=== PATIENT | male | born 1995 | race Caucasian/White ===

== ENCOUNTER 2018-10-26 18:11 | Emergency (ER) | payer BC ==
[~2018-10-26] VITALS: Ht 182.9 cm; Wt 104.1 kg
--- NOTE | 2018-10-26 21:07 | REPVR ---
EXAM: US Duplex Right Lower Extremity Veins, Limited EXAM DATE/TIME: 10/26/2018 8:21 PM CLINICAL HISTORY: 23 years old, male; Pain; Edema, localized; Lower extremity, right; Leg, lower; Additional info: Swelling/pain TECHNIQUE: Imaging protocol: Real-time Duplex ultrasound of the Right Lower Extremity with 2-D borrego scale, color Doppler flow and spectral waveform analysis. Limited exam was focused on the right lower extremity veins. COMPARISON: No relevant prior studies available. FINDINGS: Right deep veins: Unremarkable. The common femoral, femoral and popliteal veins are patent without thrombus. Normal Doppler waveforms. Normal compressibility and/or augmentation response. Right superficial veins: Unremarkable. Saphenofemoral junction is patent without thrombus. Soft tissues: Unremarkable. IMPRESSION: No sonographic evidence of deep vein thrombosis. Electronically signed by: Jonnathan Tamayo On 10/26/2018 21:06:46 PM
[2018-10-26 21:23] LABS: HEMATOCRIT 46.6 % (42.0-52.0); HEMOGLOBIN 15.5 g/dl (13.5-17.5); MEAN CORPUSCULAR HEMOGLOBIN 30.6 pg (27.0-33.0); MEAN CORPUSCULAR HGB CONC 33.3 g/dl (32.0-36.5); MEAN CORPUSCULAR VOLUME 91.9 fl (80.0-96.0); PLATELET COUNT, AUTOMATED 160 10^3/uL (150-450); RED BLOOD COUNT 5.07 10^6/uL (4.30-6.10); WHITE BLOOD COUNT 7.4 10^3/uL (4.0-10.0)
[2018-10-26 21:43] LABS: ERYTHROCYTE SEDIMENTATION RATE 5 mm/hr (0-15)
[2018-10-26 22:00] VITALS: BP 110/62
[2018-12-22] MEDS ORDERED: CORTISOL (11:37)
[2018-12-22] MEDS ORDERED: OMEGA PO (11:37)
[2018-12-22] MEDS ORDERED: protein powder PO (11:37)
[2018-12-22] MEDS ORDERED: [UNRECOGNIZED DRUG - CODE] PO (11:37)
[2018-12-22] MEDS ORDERED: PROBCAP17 PO (11:37)
[2018-12-22] MEDS ORDERED: GLUT1POW22 PO (11:37)
[2018-12-22] MEDS ORDERED: MAGN1CAP PO (11:37)
[2018-12-22] MEDS ORDERED: CALC500C16 PO (11:37)
[2018-12-22] MEDS ORDERED: MULTCAP PO (11:37)
[2018-12-22] MEDS ORDERED: [UNRECOGNIZED DRUG - OTHER] PO (11:37)
[2018-12-22] MEDS ORDERED: D3 U1000 PO (11:37)
[2018-12-22] MEDS ORDERED: JOINCAP2 PO (11:37)
[2018-12-22] MEDS ORDERED: PRE WORKOUT PO (11:37)
[2018-12-22] MEDS ORDERED: CARB PO (11:37)
[2018-12-22] MEDS ORDERED: XARE20TA PO (11:58)
== END 2018-10-26 23:02 | disposition home or self-care (01) ==
LOC: M ED 18:11
DX: M79.661 Pain in right lower leg (principal); M79.89 Other specified soft tissue disorders; R20.2 Paresthesia of skin

== ENCOUNTER → 2018-10-26 | Outpatient (REF) | payer BC ==
[2018-10-26 15:42] LABS: HIV 1&2 SCREEN CENTAUR NEGATIVE (NEGATIVE)
[2018-10-26 16:04] LABS: CHLAMYDIA DNA AMPLIFICATION NEGATIVE (NEGATIVE); GC DNA AMPLIFICATION NEGATIVE (NEGATIVE)
== END ==
LOC: M SFHCLERA 10:45
PROVIDERS: ATTEND Family Medicine
DX: M79.661 Pain in right lower leg (principal); Z11.3 Encounter for screening for infections with a predominantly sexual mode of transmission

== ENCOUNTER → 2018-10-26 | Outpatient (CLI) | payer BC ==
--- NOTE | 2018-10-26 11:40 | REP ---
Clinical: Pain to left first digit Technique: AP, lateral, bilateral oblique views left hand . Findings: Old healed fracture involving the head of the first metacarpal bone is appreciated and consistent with given history. Mild swelling surrounds the fourth proximal interphalangeal joint without underlying injury or arthritic changes. Remainder examination appears normal. Impression: 1. Old injury involving the head of the first metacarpal bone. 2. Mild focal swelling surrounding the fourth PIP joint. Electronically Signed by Jesus Pierce MD 10/26/2018 11:32 A
== END ==
LOC: M LRY 10:58
PROVIDERS: ATTEND Family Medicine
DX: M79.645 Pain in left finger(s) (principal)

== ENCOUNTER → 2018-11-11 | Outpatient (CLI) | payer BC ==
--- NOTE | 2018-11-11 09:01 | REP ---
RIGHT LOWER EXTREMITY DUPLEX VENOUS ULTRASOUND: HISTORY: Pain in the right calf. Negative Doppler ultrasound on October 26, 2018. Positive D-dimer. Repeat right lower extremity ultrasound rule out DVT. FINDINGS: There is occlusive intraluminal thrombus involving the tibioperoneal trunk extending distally into the peroneal and posterior tibial veins in the calf below the knee. Popliteal vein and the proximal deep venous system are anechoic and compressible. Intact color flow and Doppler interrogation is seen at and above the knee. IMPRESSION: Study is positive for occlusive deep venous thrombosis in the calf involving the right tibioperoneal trunk and proximal calf veins. There is no evidence of deep venous thrombosis at or above the knee. Electronically Signed by Matthew Rendon MD 11/11/2018 09:30 A
== END ==
LOC: M RAD 07:42
PROVIDERS: ATTEND Family Medicine
DX: I82.531 Chronic embolism and thrombosis of right popliteal vein (principal)

== ENCOUNTER → 2018-11-11 | Outpatient (REF) | payer BC ==
[2018-11-11 13:16] LABS: BASO % 0.4 % (0.0-1.0); EOS # 0.1 10^3/uL (0.0-0.50); EOS % 1.3 % (0.0-3.0); HEMATOCRIT 46.5 % (42.0-52.0); HEMOGLOBIN 15.5 g/dl (13.5-17.5); LYMPH # 1.7 10^3/uL (1.5-6.5); LYMPH % 25.3 % (24.0-44.0); MEAN CORPUSCULAR HEMOGLOBIN 29.5 pg (27.0-33.0); MEAN CORPUSCULAR HGB CONC 33.3 g/dl (32.0-36.5); MEAN CORPUSCULAR VOLUME 88.6 fl (80.0-96.0); MONO # 0.5 10^3/uL (0.0-0.8); MONO % 7.9 % (0.0-5.0); NEUTROPHILS # 4.4 10^3/uL (1.8-7.7); NEUTROPHILS % 64.7 % (36.0-66.0); PLATELET COUNT, AUTOMATED 171 10^3/uL (150-450); RED BLOOD COUNT 5.25 10^6/uL (4.30-6.10); WHITE BLOOD COUNT 6.8 10^3/uL (4.0-10.0)
[2018-11-11 13:27] LABS: INR 1.03; PROTHROMBIN TIME 13.2 SECONDS (11.8-14.0)
[2018-11-11 13:28] LABS: PARTIAL THROMBOPLASTIN TIME 29.2 SECONDS (25.0-38.4)
[2018-11-11 13:37] LABS: ALBUMIN 4.2 GM/DL (3.2-5.2); ALT/SGPT 38 U/L (12-78); BILIRUBIN,TOTAL 0.6 MG/DL (0.2-1.0); BLOOD UREA NITROGEN 26 MG/DL (7-18); CALCIUM LEVEL 9.1 MG/DL (8.5-10.1); CARBON DIOXIDE LEVEL 26 MEQ/L (21-32); CHLORIDE LEVEL 107 MEQ/L (98-107); CHOLESTEROL LEVEL 168 MG/DL (<200); CREATININE FOR GFR 0.84 MG/DL (0.70-1.30); GLOMERULAR FILTRATION RATE > 60.0 (>60); GLUCOSE, FASTING 90 MG/DL (70-100); HDL CHOLESTEROL 42 MG/DL (>40); LDL CHOLESTEROL 102 MG/DL (<100); NON-HDL-C 126 MG/DL; POTASSIUM SERUM 4.4 MEQ/L (3.5-5.1); SODIUM LEVEL 140 MEQ/L (136-145); TOTAL PROTEIN 7.5 GM/DL (6.4-8.2); TRIGLYCERIDES LEVEL 119 MG/DL (<150)
[2018-11-11 13:38] LABS: HEMOGLOBIN A1c 5.4 %
== END ==
LOC: M SFHCLERA 11:37
PROVIDERS: ATTEND Family Medicine
DX: Z13.21 Encounter for screening for nutritional disorder (principal); Z68.31 Body mass index [BMI] 31.0-31.9, adult; I82.4Z1 Acute embolism and thrombosis of unspecified deep veins of right distal lower extremity